=== PATIENT | female | born 2000 | race Caucasian/White ===

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

== ENCOUNTER 2018-01-17 11:35 | Emergency (ER) | payer MEDICAID ==
[2018-01-17] MEDS ORDERED: IBUPROFEN 800 MG TABLET PO STA (12:44)
[2018-01-17] MEDS ORDERED: HYDROcod/ACETAM 5/325 MG TABLET PO STA (12:44)
--- NOTE | 2018-01-17 12:46 | ED Physician Documentation ---
PD HPI LOWER EXT INJURY - Stated complaint Stated Complaint: R FOOT INJ - Chief complaint Chief Complaint: Ext Problem - History obtained from History obtained from: Patient, Family (mom) - History of Present Illness PD HPI LOW EXT INJURY LOCATION: Right, Lower leg Type of injury: Fall (She had a trip and fall going down steps yesterday and injured her right leg. She is able to walk and bear weight. She has pain of the anterior right knee, lateral ankle, and dorsal midfoot. No other injuries.) Review of Systems Constitutional: reports: Reviewed and negative Throat: reports: Reviewed and negative Cardiac: reports: Reviewed and negative PD PAST MEDICAL HISTORY - Past Medical History Cardiovascular: None Respiratory: None Endocrine/Autoimmune: Other Musculoskeletal: None - Past Surgical History Past Surgical History: Yes HEENT: Myringotomy (tubes), Tonsil/Adenoidectomy - Present Medications Home Medications: Ambulatory Orders Medication Instructions Recorded Confirmed Fluoxetine HCl [Prozac] 20 mg PO DAILY 08/19/14 08/19/14 Citalopram Hydrobromide [Celexa] 20 mg PO 01/17/18 HYDROcod/ACETAM 5/325 [[place] 5/325] 1 - 2 ea PO Q6H PRN #7 tablet 01/17/18 Ibuprofen [Motrin] 800 mg PO Q8H PRN #30 tablet 01/17/18 hydrOXYzine HCl [Hydroxyzine HCl] 10 mg PO 01/17/18 01/17/18 metFORMIN [Glucophage] 500 mg PO ONCE 01/17/18 01/17/18 - Allergies Allergies/Adverse Reactions: Allergies Allergy/AdvReac Type Severity Reaction Status Date / Time No Known Drug Allergies Allergy Verified 08/19/14 14:39 - Social History Does the pt smoke?: No Smoking Status: Never smoker - Immunizations Immunizations are current?: Yes PD ED PE NORMAL - Vitals Vital signs reviewed: Yes - General General: Alert and oriented X 3, No acute distress - Neck Neck: Supple, no meningeal sign, No bony TTP - Extremities Extremities: Other (Right lower extremity, she is focal tenderness just inferior to the patella anteriorly without lateral or medial tenderness or tenderness over the patella itself. She has full range of motion of the right knee. She is tender over the ATFL of the right ankle without malleolar tenderness on no calcaneus tenderness. She is modestly tender over the mid third and fourth metatarsals, spares the fifth metatarsal.) - Neuro Neuro: Alert and oriented X 3, Normal speech Results - Vitals Vitals: Vital Signs - 24 hr 01/17/18 01/17/18 11:48 13:05 Temperature 36.0 C L Heart Rate 85 81 Respiratory 16 22 Rate Blood Pressure 144/92 H 124/80 O2 Saturation 98 99 Oxygen O2 Source Room air - Rads (name of study) X-rays of the right foot, ankle, and knee Radiology: EMP read contemporaneously (Os trigonum noted, otherwise all negative.) PD MEDICAL DECISION MAKING - Sepsis Event Vital Signs: Vital Signs - 24 hr 01/17/18 01/17/18 11:48 13:05 Temperature 36.0 C L Heart Rate 85 81 Respiratory 16 22 Rate Blood Pressure 144/92 H 124/80 O2 Saturation 98 99 Oxygen O2 Source Room air Departure - Departure Disposition: 01 Home, Self Care Clinical Impression: Knee sprain Qualifiers: Encounter type: initial encounter Involved ligament of knee: unspecified ligament Laterality: right Qualified Code(s): S83.91XA - Sprain of unspecified site of right knee, initial encounter High ankle sprain of right lower extremity Qualifiers: Encounter type: initial encounter Qualified Code(s): S93.431A - Sprain of tibiofibular ligament of right ankle, initial encounter Condition: Good Record reviewed to determine appropriate education?: Yes Instructions: ED Meniscal Injury Knee Poss, ED Sprain Ankle W X Ray Prescriptions: HYDROcod/ACETAM 5/325 [[place] 5/325] 1 - 2 ea PO Q6H PRN #7 tablet PRN Reason: Pain Ibuprofen [Motrin] 800 mg PO Q8H PRN #30 tablet PRN Reason: PAIN &/OR FEVER Comments: Call your doctor to arrange a follow-up appointment, make the next available appointment. In the interim, return anytime if worse or if new symptoms develop.
--- NOTE | 2018-01-17 12:53 | XRAY Report ---
Procedure Date: 01/17/2018 Accession Number: [id number] / [id number] Procedure: XR - Ankle 3 View RT CPT Code: FULL RESULT: EXAM: RIGHT ANKLE RADIOGRAPHY EXAM DATE: 01/17/2018 12:38 PM. CLINICAL HISTORY: Fall. COMPARISON: x-ray ankle complete min 3 view 04/18/2008. TECHNIQUE: 3 views. FINDINGS: Bones: Os trigonum is noted. No fractures or bone lesions. Joints: Normal. No effusion. No subluxations. The ankle mortise is normally aligned. Soft Tissues: Normal. No soft tissue swelling. IMPRESSION: Correlate presence of os trigonum to posterior impingement syndrome clinically. RADIA
--- NOTE | 2018-01-17 13:02 | XRAY Report ---
Procedure Date: 01/17/2018 Accession Number: [id number] / [id number] Procedure: XR - Foot 3 View RT CPT Code: FULL RESULT: EXAM: RIGHT FOOT RADIOGRAPHY EXAM DATE: 01/17/2018 12:38 PM. CLINICAL HISTORY: Fall. COMPARISON: XR FOOT COMPLETE MIN 3 VIEWS 10/21/2009. TECHNIQUE: 3 views. FINDINGS: Bones: Normal. No fractures or bone lesions. Joints: Normal. No subluxations. Soft Tissues: Normal. No soft tissue swelling. IMPRESSION: Normal foot radiography. RADIA
--- NOTE | 2018-01-17 13:04 | XRAY Report ---
Procedure Date: 01/17/2018 Accession Number: [id number] / [id number] Procedure: XR - Knee 3 View RT CPT Code: FULL RESULT: EXAM: RIGHT KNEE RADIOGRAPHY EXAM DATE: 01/17/2018 12:38 PM. CLINICAL HISTORY: Fall. COMPARISON: None. TECHNIQUE: 3 views. FINDINGS: Bones: Normal. No fractures or bone lesions. Joints: Normal. No effusion. No subluxations. Soft Tissues: Normal. No soft tissue swelling. IMPRESSION: No fracture or dislocation. RADIA
[2018-01-17 13:31] VITALS: BP 144/90
== END 2018-01-17 13:30 | disposition home or self-care (01) ==
LOC: ED 11:35
DX: S83.91XA Sprain of unspecified site of right knee, initial encounter (principal); S93.431A Sprain of tibiofibular ligament of right ankle, initial encounter; W01.0XXA Fall on same level from slipping, tripping and stumbling without subsequent striking against object, initial encounter
CPT/HCPCS: 73562; 73610; 73630; 99283; A9270

== ENCOUNTER 2018-05-15 09:38 | Outpatient (CLI) | payer MEDICAID ==
[2018-05-15 14:04] LABS: HB2 TOTAL 15.1 g/dL; HEMOGLOBIN A1C 0.52 g/dL; HEMOGLOBIN A1C % 5.3 % (4.6-6.2)
== END 2018-05-15 23:59 | disposition home or self-care (01) ==
LOC: LAB.N 09:38
PROVIDERS: ATTEND Nurse Practitioner Gerontology
DX: E11.9 Type 2 diabetes mellitus without complications (principal)
CPT/HCPCS: 36415; 83036

== ENCOUNTER 2018-06-24 16:46 | Emergency (ER) | payer MEDICAID ==
--- NOTE | 2018-06-24 17:34 | ED Physician Documentation ---
PD HPI SKIN - Stated complaint Stated Complaint: HAND REDNESS - Chief complaint Chief Complaint: General - History obtained from History obtained from: Patient - History of Present Illness Timing - onset: Last night (The patient saw a small black worm on her cat and went to examine it and found a couple of more. It was not perianal per se but kind of on the for on the back and. She did not feel that the cat had scratched her but after examining the cat she noticed 2 small points of blood on her hand. She was worried she might have had something happen from the war. She had not noticed any open sores on the cat. Subsequently she also states that she was at the eye doctor couple of days ago when and when she had her eyes dilated she felt lightheaded and then was witnessed to have a brief tonic movement of her muscles and the whole body and was passed out for a minute or so. There was concern that she may have had a seizure. The patient states the eye doctor did not call the ambulance or such in the apparently seemed to feel is more of a fainting episode. The patient and her mother are asking for some basic blood tests.) Timing - details: Abrupt onset Quality / character: No: Itchy, Painful Associated symptoms: Other (no rash nor sores. denies perianal itching nor rash.). No: Fever, Myalgias, N/V/D Similar symptoms before: Has not had sx before Recently seen: Not recently seen Review of Systems Constitutional: denies: Fever, Chills Nose: denies: Rhinorrhea / runny nose, Congestion Throat: denies: Sore throat Respiratory: denies: Cough GI: denies: Vomiting, Constipation, Diarrhea Skin: denies: Rash, Lesions Neurologic: reports: Seizure (possible seizure activity vs. fainting while at eye doctor a few days ago.). denies: Generalized weakness, Focal weakness, Numbness, Altered mental status, Headache PD PAST MEDICAL HISTORY - Past Medical History Past Medical History: Yes Cardiovascular: Hypertension Respiratory: None Neuro: None Endocrine/Autoimmune: Type 2 diabetes Musculoskeletal: None - Past Surgical History Past Surgical History: Yes HEENT: Myringotomy (tubes), Tonsil/Adenoidectomy - Present Medications Home Medications: Ambulatory Orders Medication Instructions Recorded Confirmed HYDROcod/ACETAM 5/325 [[place] 5/325] 1 - 2 ea PO Q6H PRN #7 tablet 01/17/18 Ibuprofen [Motrin] 800 mg PO Q8H PRN #30 tablet 01/17/18 hydrOXYzine HCl [Hydroxyzine HCl] 10 mg PO DAILY 01/17/18 06/24/18 metFORMIN [Glucophage] 500 mg PO ONCE 01/17/18 06/24/18 Lisinopril 10 mg PO DAILY 06/24/18 06/24/18 Mebendazole [Emverm] 100 mg PO ONCE 1 Days #2 tab.chew 06/24/18 Propranolol [Inderal] 20 mg PO BID 06/24/18 06/24/18 Topiramate 25 mg PO DAILY 06/24/18 06/24/18 traZODone [Desyrel] 50 mg PO DAILY 06/24/18 06/24/18 - Allergies Allergies/Adverse Reactions: Allergies Allergy/AdvReac Type Severity Reaction Status Date / Time No Known Drug Allergies Allergy Verified 06/24/18 16:51 - Social History Does the pt smoke?: No Smoking Status: Never smoker Does the pt drink ETOH?: No Does the pt have substance abuse?: No - Immunizations Immunizations are current?: Yes - POLST Patient has POLST: No PD ED PE NORMAL - Vitals Vital signs reviewed: Yes - General General: Alert and oriented X 3, No acute distress, Well developed/nourished - HEENT HEENT: PERRL, EOMI, Moist mucous membranes, Pharynx benign - Neck Neck: Supple, no meningeal sign, No adenopathy - Cardiac Cardiac: RRR, No murmur - Respiratory Respiratory: Clear bilaterally - Abdomen Abdomen: Soft, Non tender - Female Female : Deferred - Rectal Rectal: Deferred - Back Back: No CVA TTP - Derm Derm: Normal color - Neuro Neuro: Alert and oriented X 3, angle furnaceman 2-12 intact, No motor deficit, No sensory deficit, Normal speech Results - Vitals Vitals: Vital Signs - 24 hr 06/24/18 16:48 Temperature 36.7 C Heart Rate 102 H Respiratory 22 Rate Blood Pressure 148/96 H O2 Saturation 99 Oxygen O2 Source Room air - Labs Labs: Laboratory Tests 06/24/18 18:38 Urine Color YELLOW Urine Clarity CLEAR Urine pH 6.0 Ur Specific [place] 1.010 Urine Protein NEGATIVE Urine Glucose (UA) NEGATIVE Urine Ketones NEGATIVE Urine Occult Blood NEGATIVE Urine Nitrite NEGATIVE Urine Bilirubin NEGATIVE Urine Urobilinogen 0.2 (NORMAL) Ur Leukocyte Esterase NEGATIVE Ur Microscopic Review NOT INDICATED Urine Culture Comments NOT INDICATED PD MEDICAL DECISION MAKING - ED course Complexity details: considered differential (The patient is very concerned that she may have contracted something like pinworms from her cat as she did find some on her. As such as she takes her cat to the that as other possibilities could be flea A or something else. However the size of it she draws (she did not have 1 of them with her) it is more of a pinworm size. Alternatively could have been a segment from a tape worm although she says it was still moving. She is very concerned about it and it seems low potential side effects to give her single dose of Vermox if she did have some [place] from the cat. Again she should take her cat to the vet. In addition she describes a seizure-like episode when she was at the eye doctor a few days ago after her eyes were dilated. It sounds like it might have been just a fainting episode with some muscle contraction. She and her mom request "blood tests". I do not see an i ndication for imaging as she has not had any further episodes nor headache. She denies any focal deficits. Her exam is normal. I will do basic chemistry panel to look at blood sugar issues.), d/w patient Departure - Departure Clinical Impression: Observed seizure-like activity Condition: Stable Record reviewed to determine appropriate education?: Yes Prescriptions: Mebendazole [Emverm] 100 mg PO ONCE 1 Days #2 tab.chew Comments: I would take your cat to the vet to have them examined for potential worms if you saw a small one on your cat. If you are concerned about having contracted a worm infestation from your cat, we can treat with a single dose of mebendazole which would treat most of those types. Other possibilities could be Flea larvae or something external. Again I would suggest having your cat checked by a vet. Regarding the seizure-like activity when you are at the eye doctor, that could result from a fainting episode or side effect of the medicine and would be nonrecurring. I would just see how you do with regard to any further similar symptoms and follow-up with your primary care if needed. Your basic blood tests here are okay.
[2018-06-24 18:53] LABS: BILIRUBIN,URINE NEGATIVE (NEGATIVE); CLARITY,URINE CLEAR (CLEAR); GLUCOSE, URINE (UA) NEGATIVE (NEGATIVE); KETONES,URINE (UA) NEGATIVE (NEGATIVE); LEUKOCYTE ESTERASE, URINE NEGATIVE (NEGATIVE); NITRITE,URINE NEGATIVE (NEGATIVE); OCCULT BLOOD,URINE NEGATIVE (NEGATIVE); PROTEIN,URINE NEGATIVE (NEGATIVE); UROBILINOGEN,URINE 0.2 (NORMAL) E.U./dL (NORMAL)
[2018-06-24 19:28] LABS: BASOPHILS # (AUTO) 0.1 10^3/uL (0.0-0.1); EOSINOPHILS # (AUTO) 0.1 10^3/uL (0.0-0.7); EOSINOPHILS % (AUTO) 0.5 %; HGB - HEMOGLOBIN 14.3 g/dL (12.0-16.0); LYMPHOCYTES % (AUTO) 29.4 %; MEAN CORPUSCULAR HEMOGLOBIN 28.8 pg (27.0-31.0); MEAN CORPUSCULAR HGB CONC 33.7 g/dL (32.0-36.0); MEAN CORPUSCULAR VOLUME 85.5 fL (81.0-99.0); MEAN PLATELET VOLUME 8.3 fL (7.9-10.8); MONOCYTES # (AUTO) 0.7 10^3/uL (0.0-1.0); NEUTROPHILS # (AUTO) 8.6 10^3/uL (1.5-6.6); NEUTROPHILS % (AUTO) 64.1 %; RED BLOOD COUNT 4.97 10^6/uL (4.20-5.40); RED CELL DISTRIBUTION WIDTH 13.8 % (12.0-15.0); WHITE BLOOD COUNT 13.5 x10^3/uL (4.8-10.8)
[2018-06-24 19:36] LABS: ALBUMIN/GLOBULIN RATIO 1.1 (1.0-2.2); BILIRUBIN,TOTAL 0.5 mg/dL (0.2-1.0); CALCIUM 9.1 mg/dL (8.5-10.3); CREATININE 1.1 mg/dL (0.4-1.0); TOTAL PROTEIN 7.7 g/dL (6.7-8.2)
[2018-06-24 19:40] LABS: PLATELET ESTIMATE, MANUAL NORMAL (130-450,000) (NORMAL); PLATELET MORPHOLOGY PLATELET CLUMPING (NORMAL); RBC MORPHOLOGY (MULTIPLE) NORMAL APPEARANCE (NORMAL)
[2018-06-24 20:03] VITALS: BP 133/74
== END 2018-06-24 20:03 | disposition home or self-care (01) ==
LOC: ED 16:46
DX: R55 Syncope and collapse (principal); R42 Dizziness and giddiness; L98.8 Other specified disorders of the skin and subcutaneous tissue; I10 Essential (primary) hypertension; E11.9 Type 2 diabetes mellitus without complications; Z79.84 Long term (current) use of oral hypoglycemic drugs
CPT/HCPCS: 36415; 80053; 81001; 81003; 83690; 85025; 87086; 99283

== ENCOUNTER 2018-07-14 12:59 | Outpatient (CLI) | payer MEDICAID ==
--- NOTE | 2018-07-14 13:51 | CT Report ---
Reason: SEIZURE, MIGRAINE Procedure Date: 07/14/2018 Accession Number: [id number] / [id number] Procedure: CT - Head W/O CPT Code: FULL RESULT: EXAM: CT HEAD EXAM DATE: 07/14/2018 01:20 PM. CLINICAL HISTORY: Migraines. Seizure. COMPARISON: None. TECHNIQUE: Multiaxial CT images were obtained from the foramen magnum to the vertex. Reformats: Sagittal and coronal. IV contrast: None. In accordance with CT protocol optimization, one or more of the following dose reduction techniques were utilized for this exam: automated exposure control, adjustment of mA and/or KV based on patient size, or use of iterative reconstructive technique. FINDINGS: Parenchyma: No intraparenchymal hemorrhage. No evidence of mass, midline shift, or CT findings of infarction. Rushing-white differentiation is distinct. Extraaxial Spaces: Normal for age. No subdural or epidural collections identified. Ventricles: Normal in size and position. Sinuses and Orbits: Imaged paranasal sinuses, orbits, and mastoids show no significant abnormality. Bones: No evidence of fracture or calvarial defect. Other: None. IMPRESSION: Normal head CT. RADIA
== END 2018-07-14 13:00 | disposition home or self-care (01) ==
LOC: DI 12:59
PROVIDERS: ATTEND Nurse Practitioner Gerontology
DX: R56.9 Unspecified convulsions (principal); G43.909 Migraine, unspecified, not intractable, without status migrainosus
CPT/HCPCS: 70450

== ENCOUNTER 2018-08-14 20:18 | Emergency (ER) | payer MEDICAID ==
--- NOTE | 2018-08-14 21:39 | ED Physician Documentation ---
PD HPI SKIN - Stated complaint Stated Complaint: RASH ON FACE - Chief complaint Chief Complaint: Wound - History obtained from History obtained from: Patient - History of Present Illness Timing - onset: How many days ago (2-3) Timing - duration: Days (2-3) Timing - details: Gradual onset, Still present Location: Face (started around mouth and cheek and has increased. Neck also today.), Neck Quality / character: Itchy, Burning Associated symptoms: No: Fever, Myalgias, Facial swelling Contributing factors: Other (no makeup change). No: Exposed to medication, Exposed to food, Recent illness Similar symptoms before: Has not had sx before Recently seen: Not recently seen Review of Systems Constitutional: denies: Fever, Chills Nose: denies: Rhinorrhea / runny nose, Congestion Throat: denies: Sore throat Respiratory: denies: Cough GI: denies: Abdominal Pain, Nausea, Vomiting PD PAST MEDICAL HISTORY - Past Medical History Cardiovascular: Hypertension Respiratory: None Neuro: None Endocrine/Autoimmune: Type 2 diabetes Musculoskeletal: None - Past Surgical History Past Surgical History: Yes HEENT: Myringotomy (tubes), Tonsil/Adenoidectomy - Present Medications Home Medications: Ambulatory Orders Medication Instructions Recorded Confirmed Ibuprofen [Motrin] 800 mg PO Q8H PRN #30 tablet 01/17/18 hydrOXYzine HCl [Hydroxyzine HCl] 10 mg PO DAILY 01/17/18 06/24/18 metFORMIN [Glucophage] 500 mg PO ONCE 01/17/18 06/24/18 Lisinopril 10 mg PO DAILY 06/24/18 06/24/18 Propranolol [Inderal] 20 mg PO BID 06/24/18 06/24/18 Topiramate 25 mg PO DAILY 06/24/18 06/24/18 traZODone [Desyrel] 50 mg PO DAILY 06/24/18 06/24/18 Betamethasone Valerate 1 applic TP BID #15 cream..g. 08/14/18 Cetirizine [ZyrTEC] 10 mg PO DAILY #15 tablet 08/14/18 Dexamethasone [Decadron] 4 mg PO DAILY #5 tablet 08/14/18 - Allergies Allergies/Adverse Reactions: Allergies Allergy/AdvReac Type Severity Reaction Status Date / Time No Known Drug Allergies Allergy Verified 08/14/18 20:26 - Social History Does the pt smoke?: No Smoking Status: Never smoker Does the pt drink ETOH?: No Does the pt have substance abuse?: No - Immunizations Immunizations are current?: Yes - POLST Patient has POLST: No PD ED PE NORMAL - Vitals Vital signs reviewed: Yes - General General: Alert and oriented X 3, No acute distress, Well developed/nourished - HEENT HEENT: Ears normal, Pharynx benign - Neck Neck: Supple, no meningeal sign, No adenopathy - Cardiac Cardiac: RRR, No murmur - Respiratory Respiratory: Clear bilaterally - Derm Derm: Normal color, Warm and dry, Other Results - Vitals Vitals: Oxygen O2 Source Room air PD MEDICAL DECISION MAKING - ED course Complexity details: considered differential (seems allergy/irritant), d/w patient Departure - Departure Disposition: 01 Home, Self Care Clinical Impression: Facial rash Condition: Stable Record reviewed to determine appropriate education?: Yes Instructions: ED Dermatitis Atopic Eczema Prescriptions: Betamethasone Valerate 1 applic TP BID #15 cream..g. Cetirizine [ZyrTEC] 10 mg PO DAILY #15 tablet Dexamethasone [Decadron] 4 mg PO DAILY #5 tablet Comments: Use the Decadron oral steroid daily for the next 5 days. Cetirizine antihistamine daily for a week or 2. Used topical steroid betamethasone to the major rsh parts on the face twice daily until improved. Discharge Date/Time: 08/14/18 22:25
[2018-08-14] MEDS ORDERED: ACETAMINOPHEN 325 MG TABLET PO STA (21:52)
[2018-08-14] MEDS ORDERED: LIDOCAINE JELLY 2% 5 ML TUBE TOP STA (21:52)
[2018-08-14] MEDS ORDERED: DEXAMETHASONE 10 MG/ML VIAL PO STA (21:52)
[2018-08-14] MEDS ORDERED: CHERRY SYRUP 10 ML UDC PO ONE (22:03)
[2018-08-14] MEDS ORDERED: LIDOCAINE JELLY 2% 6 ML JEL.PF.APP ONE (22:05)
[2018-08-14 22:25] VITALS: BP 122/67
== END 2018-08-14 22:25 | disposition home or self-care (01) ==
LOC: ED 20:18
DX: R21 Rash and other nonspecific skin eruption (principal); I10 Essential (primary) hypertension; E11.9 Type 2 diabetes mellitus without complications; Z79.84 Long term (current) use of oral hypoglycemic drugs
CPT/HCPCS: 99283; A9270

== ENCOUNTER 2021-10-26 11:00 | Outpatient (CLI) | payer MEDICAID ==
[2021-10-27 22:33] LABS: BACTERIAL VAGINOSIS DNA NEGATIVE (NEGATIVE); CANDIDA GLABRATA DNA NEGATIVE (NEGATIVE); CANDIDA GROUP DNA NEGATIVE (NEGATIVE); CANDIDA KRUSEI DNA NEGATIVE (NEGATIVE); TRICHOMONAS VAGINALIS DNA NEGATIVE (NEGATIVE)
== END 2021-10-26 23:59 | disposition home or self-care (01) ==
LOC: LAB.WC 11:00
PROVIDERS: ATTEND Obstetrics & Gynecology
DX: N89.8 Other specified noninflammatory disorders of vagina (principal)
CPT/HCPCS: 81514

== ENCOUNTER 2021-11-14 08:00 | Outpatient (CLI) | payer MEDICAID | END 2021-11-14 23:59 | disposition home or self-care (01) | LOC: LAB.N 08:00 | PROVIDERS: ATTEND Nurse Practitioner | DX: L60.0 Ingrowing nail (principal); L03.031 Cellulitis of right toe | CPT/HCPCS: 87070; 87205 ==

== ENCOUNTER 2022-08-18 07:46 | Outpatient (CLI) | payer MEDICAID ==
[2022-08-18 12:07] LABS: ESTIMATED AVERAGE GLUCOSE 108 mg/dL (70-100); HEMOGLOBIN A1c% 5.4 % (4.27-6.07)
== END 2022-08-18 07:47 | disposition home or self-care (01) ==
LOC: LAB.N 07:46
PROVIDERS: ATTEND Nurse Practitioner
DX: E11.9 Type 2 diabetes mellitus without complications (principal)
CPT/HCPCS: 36415; 83036

== ENCOUNTER 2022-08-20 08:00 | Outpatient (CLI) | payer MEDICAID ==
[2022-08-20 16:14] LABS: BILIRUBIN,URINE NEGATIVE (NEGATIVE); GLUCOSE, URINE (UA) NEGATIVE (NEGATIVE); KETONES,URINE (UA) NEGATIVE (NEGATIVE); LEUKOCYTE ESTERASE, URINE SMALL (NEGATIVE); NITRITE,URINE NEGATIVE (NEGATIVE); OCCULT BLOOD,URINE MODERATE (NEGATIVE); PH,URINE 6.5 PH (5.0-7.5); PROTEIN,URINE NEGATIVE (NEGATIVE); UROBILINOGEN,URINE 0.2 (NORMAL) E.U./dL (NORMAL)
[2022-08-20 16:21] LABS: CLARITY,URINE CLEAR (CLEAR)
[2022-08-20 16:22] LABS: BACTERIA,URINE Few /HPF (None Seen); RBC,URINE 0-5 /HPF (0-5); SQUAMOUS EPITHELIAL CELL,UR FEW Squamous (<= Few)
[2022-08-21 00:26] LABS: BACTERIAL VAGINOSIS DNA POSITIVE (NEGATIVE); CANDIDA KRUSEI DNA NEGATIVE (NEGATIVE); TRICHOMONAS VAGINALIS DNA NEGATIVE (NEGATIVE)
[2022-08-21 00:27] LABS: CANDIDA GLABRATA DNA NEGATIVE (NEGATIVE); CANDIDA GROUP DNA POSITIVE (NEGATIVE)
[2022-08-21 09:01] LABS: CHLAMYDIA TRACHOMATIS DNA NEGATIVE (NEGATIVE); NEISSERIA GONORRHOEAE DNA NEGATIVE (NEGATIVE)
== END 2022-08-20 23:59 | disposition home or self-care (01) ==
LOC: LAB.WC 08:00
PROVIDERS: ATTEND Nurse Practitioner
DX: R39.82 Chronic bladder pain (principal); Z11.3 Encounter for screening for infections with a predominantly sexual mode of transmission; N89.8 Other specified noninflammatory disorders of vagina
CPT/HCPCS: 81001; 81514; 87086; 87491; 87591; 87661

== ENCOUNTER 2022-09-01 12:44 | Outpatient (CLI) | payer MEDICAID ==
--- NOTE | 2022-09-01 19:38 | Ultrasound Report ---
PROCEDURE: Pelvic w/Transvaginal INDICATIONS: PELVIC PAIN TECHNIQUE: Real-time scanning was performed of the pelvic organs, with image documentation. Additional endovagi nal scanning was necessary due to incomplete visualization of the adnexal and endometrial structures by transabdominal scanning. COMPARISON: None. FINDINGS: Uterus: Uterus is retroverted and unremarkable in size at 6.1 x 3.0 x 3.1 cm. The myometrium is kenia ogeneous. The endometrium measures 7 mm in combined thickness. Ovaries: The right ovary measures 3.0 x 1 0.5 mg 0.5 cm, with a calculated ovarian volume of 4 cc. The left ovary measures 3.1 x 2.2 x 1.5 cm, with a calculated ovarian volume of 5 cc. The ovaries [place] ve a unremarkable sonographic appearance. No adnexal masses are seen. Other: No pathologic free abdominal or pelvic fluid. IMPRESSION: Unremarkable pelvic ultrasound. Reviewed by: Candido Tellez MD on 09/01/2022 7:37 PM PDT Approved by: Candido Tellez MD on 09/01/2022 7:37 PM PDT Station ID: [id number]
== END 2022-09-01 12:45 | disposition home or self-care (01) ==
LOC: DI 12:44
PROVIDERS: ATTEND Nurse Practitioner
DX: R10.2 Pelvic and perineal pain (principal)

== ENCOUNTER 2022-09-23 09:25 | Outpatient (CLI) | payer MEDICAID ==
[2022-09-23 09:41] LABS: CREATININE 1.1 mg/dL (0.4-1.0)
[2022-09-23] MEDS ORDERED: iohexoL-300 100 ML VIAL ONE (10:22)
[2022-09-23] MEDS ORDERED: iohexoL-300 100 ML VIAL IVP ONE (10:51)
[2022-09-23] MEDS ORDERED: DIATRIZOATE MEGLU/DIATRIZO SOD 30 ML BOTTLE PO ONE (10:51)
--- NOTE | 2022-09-24 12:00 | CT Report ---
PROCEDURE: ABDOMEN/PELVIS W INDICATIONS: ABD PAIN AND BLOATING CONTRAST: 100ml Omnipaque 300 TECHNIQUE: After the administration of oral and intravenous contrast, 5 mm thick sections acquired from the diap hragms to the symphysis. 5 mm thick coronal and sagittal reformats were acquired. For radiation dos e reduction, the following was used: automated exposure control, adjustment of mA and/or kV accordin g to patient size. COMPARISON: Pelvic ultrasound, 09/01/2022 FINDINGS: Image quality: Excellent. Lung bases and heart: Unremarkable. Liver: Size. Mild hepatic steatosis. Gallbladder and biliary tree: Normal gallbladder and biliary ducts. Spleen: Unremarkable. Pancreas: Unremarkable. Adrenals: Unremarkable. Kidneys and ureters: Unremarkable. Bowel and peritoneum: No bowel distension. No pathologic free fluid. Normal appendix. Lymph nodes: No enlarged retroperitoneal or mesenteric lymph nodes. Numerous small mesenteric lymph n odes are seen. Vessels: Unremarkable. PELVIS Reproductive organs: Unremarkable. Bladder: Unremarkable. Lymph nodes: Unremarkable. Bones: No aggressive osseous abnormality. Other: None. IMPRESSION: 1. No acute abnormality disease in abdomen pelvis. A cause for abdominal pain and bloating is not def initively identified. 2. Mild hepatic steatosis. 3. Small mesenteric lymph nodes are noted, nonspecific and suggesting mesenteric adenitis. Reviewed by: Ananya Martinez MD on 09/24/2022 11:59 AM PDT Approved by: Ananya Martinez MD on 09/24/2022 11:59 AM PDT Station ID: [id number]
== END 2022-09-23 09:26 | disposition home or self-care (01) ==
LOC: LAB 09:25
PROVIDERS: ATTEND Nurse Practitioner
DX: R14.0 Abdominal distension (gaseous) (principal); R10.9 Unspecified abdominal pain; K76.0 Fatty (change of) liver, not elsewhere classified
CPT/HCPCS: 36415; 74177; 82565; Q9967

== ENCOUNTER 2022-10-08 09:05 | Outpatient (CLI) | payer MEDICAID ==
[~2022-10-08 09:05] MED LIST: GADOBUTROL 15 MMOL/15 ML VIAL ONE
[2022-10-08] MEDS ORDERED: GADOBUTROL 15 MMOL/15 ML VIAL IVP ONE (11:45)
--- NOTE | 2022-10-08 12:59 | MRI Report ---
PROCEDURE: PELVIS W/WO INDICATIONS: ABD PAIN CONTRAST: GADAVIST 10.4 ML TECHNIQUE: Coronal ultra fast SE, sagittal breath-hold T2 FSE; axial T1 FSE with and without fat saturation thro ugh the pelvis. Optional long- and short-axis uterine nonbreath-hold T2 FSE through the uterus. Sag ittal or axial dynamic ultra fast GE during administration of contrast. Post-contrast axial or coron al ultra fast GE / 2-D spoiled GE with fat saturation from the iliac crests to the symphysis. Option al diffusion weighted imaging and ADC may be performed. COMPARISON: CT 09/23/2022 FINDINGS: Image quality: Excellent. Uterus: Uterus is normal in size. Endometrium is normal in thickness. Junctional zone is normal in thickness at 12 mm or less. Adnexa: Both ovaries are normal in size, without suspicious cystic or solid lesions. Urinary system: Bladder wall is normal in thickness. Distal ureters are non distended. Urethra suha ears normal in morphology. Nodes and vessels: No pelvic or inguinal adenopathy by size criteria. Iliac vessels are normal in s ize. Bowel and peritoneum: No pathologic free pelvic fluid. Inferior colon and small bowel loops are nor mal in caliber. Soft tissues: No inguinal hernias. No findings of pelvic floor incompetence in the absence of provo cation. Bones: Marrow demonstrates normal overall signal. IMPRESSION: Normal pelvic MRI. No evidence of endometriosis. Reviewed by: Ethan Morales on 10/08/2022 12:58 PM PDT Approved by: Ethan Morales on 10/08/2022 12:58 PM PDT Station ID: [id number]
== END 2022-10-08 09:06 | disposition home or self-care (01) ==
LOC: DI 09:05
PROVIDERS: ATTEND Nurse Practitioner
DX: R10.9 Unspecified abdominal pain (principal)
CPT/HCPCS: 36415; 72197; 82565; A9585